=== PATIENT | male | born 1970 | race Caucasian/White ===

== ENCOUNTER 2018-01-14 12:49 | Emergency (ER) | payer BC, SELFPAY ==
[2018-01-14 12:50] VITALS: BP 113/63; PULSE 110; RESP 16; TEMP 36.7; O2SAT 97; BMI 22.5
--- NOTE | 2018-01-14 14:00 | RAD_ITS ---
STUDY: X-RAY CHEST REASON FOR EXAM: Male, 47 years old. Flulike symptoms with cough. TECHNIQUE: Frontal and lateral views of the chest. COMPARISON: None. FINDINGS: The lungs are hyperexpanded. There are granulomatous calcifications. There is no demonstrated pleural abnormality. Normal size heart. Normal mediastinum and felipe. Normal visualized pulmonary arteries. Normal visualized aortic arch and descending thoracic aorta. Normal visualized thoracic spine. Normal visualized ribs, clavicles, and shoulders. There is no demonstrated abnormality of the visualized soft tissue structures of the upper abdomen. RAD/Chest PA and Lateral IMPRESSION: Hyperexpansion. No acute pathology. Electronically Signed: Jt Jain MD at 14:26 EDT , Service support ,
[2018-01-14 14:01] LABS: Absolute Lymphocyte Count 1.52 X10^3/ul (0.83-4.51); Absolute Neutrophil Count 3.7 X10^3/uL (2.0-7.7); Basophil# 0.01 X10^3/uL; Basophil% 0.2 % (0-1); Eosinophil# 0.01 X10^3/uL; Eosinophils% 0.2 % (0-5); Hematocrit 43.4 % (40-54); Lymphocyte # 1.52 X10^3/ul (4.0); Lymphocyte % 26.7 % (19-41); Mean Corp Hgb Conc 34.6 g/gl (32-36); Mean Corpuscular Hgb 29.6 pg (27.0-32.0); Mean Corpuscular Volume 85.6 fL (80-94); Mean Platelet Vol. 10.3 fl (6.2-12.0); Monocyte% 8.8 % (0-10); Neutrophil # 3.66 X10^3/uL (2.7-7.7); Neutrophil % 64.1 % (47-70); Platelet Count 171 K/mm3 (150-450); RBC Distribution Width CV 12.9 % (11.6-14.6); RBC Distribution Width SD 40.5 fl (35.1-43.9); Red Blood Count 5.07 M/mm3 (4.6-6.2); White Blood Count 5.7 K/mm3 (4.4-11.0)
[2018-01-14 14:03] LABS: POSITIVE COUNT NO; POSITIVE DIFFERENTIAL NO; POSITIVE MORPHOLOGY NO
[2018-01-14 14:07] LABS: Anion Gap 9 (5-15); BUN 16 mg/dL (7-18); BUN/Creat Ratio 17.5 RATIO (10-20); Calcium,Total 8.6 mg/dL (8.5-10.1); Chloride 107 mmol/L (98-107); Creatinine, Serum 0.91 mg/dL (0.70-1.30); EST Glomerular Filtration Rate 94 mL/min (>60); Est Glom Filt Rate - Afr Amer 114 mL/min (>60); Estimated Creatinine Clearance 88.88 ml/min; Glucose 110 mg/dL (74-106); Potassium 4.2 mmol/L (3.5-5.1); Sodium Level 139 mmol/L (136-145)
[2018-01-14] MEDS: Morphine 2 MG/ML Syringe IV (14:13)
[2018-01-14] MEDS: Ketorolac 30 MG/ML Syringe IV (14:13)
[2018-01-14] MEDS: Ondansetron 4 MG/2 ML Vial IV (14:13)
[2018-01-14] MEDS: 0.9% Normal Saline 1,000 ML 1000 ML IV (14:13)
--- NOTE | 2018-01-14 16:44 | ED.VISSUMM ---
- ER Visit Summary Date of Service: 01/14/18 Chief Complaint: Body aches, cough, fever, chills History of Present Illness: The patient is a 47 M with a 4 or 5 day history of generalized body aches and sedative fevers. He reports cough with green sputum. He does not feels of his wheezing. He had some mild diarrhea but no nausea or vomiting. Physical Examination: Vital signs are significant for mildly elevated heart rate of 110. Patient's lying in bed no acute distress. He appears ill but not toxic. Head neck examination reveals TMs to be clear bilaterally. He has 2+ tonsils with no exudate. Uvula is midline. Heart is tachycardic and regular. Lung sounds are clear. Abdomen is soft nontender. Skin examination was no rash or lesions. Test Results: CBC and chemistry studies are unremarkable. Influenza and rapid strep are negative. Two-view chest x-ray reveals hyperexpansion with no acute pathology. Emergency Department Course and Treatment: Patient was given Toradol, Zofran, and 2 mg of morphine. He was given a liter of IV fluids. On repeat evaluation he does feel improved. Viral syndrome was discussed with him. He will be given a prescription for naproxen and encouraged to increase fluids. Treatment Plan: [] Disposition: Discharge Impression: Viral syndrome This note was generated with [employer] dictation software. It may contain incorrect words, spelling, and punctuation that were not noted in review of the chart prior to signing ED Disposition - Plan for ED Patient: Disposition: Home or Assisted Living Chief Complaint: General Illness Instructions: ED Viral Syndrome Prescriptions: Naproxen [Naprosyn] 500 mg PO BID PRN #20 tablet Referrals: Jonnie Nunez MD [STAFF PHYSICIAN] - As Needed
[2018-01-14 16:49] VITALS: BP 122/58; PULSE 74; RESP 15; O2SAT 98
== END 2018-01-14 16:51 | disposition home or self-care (01) ==
PROVIDERS: Emergency Provider Emergency Medicine
DX: B34.9 Viral infection, unspecified (principal); Z72.0 Tobacco use
CPT/HCPCS: 71046; 80048; 85025; 87804; 87880; 96361; 96374; 96375; 99283; J7030; A4216; J2405